=== PATIENT | female | born 1950 | race Two or more races ===

== ENCOUNTER 2022-11-01 07:52 | Outpatient (CLI) | payer OTHER | END 2022-11-01 07:59 | disposition home or self-care (01) | LOC: MRI 07:52 | PROVIDERS: ATTEND Internal Medicine Gastroenterology | DX: R10.11 Right upper quadrant pain (principal); K29.70 Gastritis, unspecified, without bleeding; K80.20 Calculus of gallbladder without cholecystitis without obstruction | CPT/HCPCS: 74181 ==

== ENCOUNTER 2022-11-30 05:10 | Day surgery (SDC) | payer OTHER ==
[~2022-11-30] VITALS: Ht 165.1 cm; Wt 72.6 kg
[~2022-11-30 05:10] MED LIST: ATACAND32 MG PO; LIPITOR40 M1 PO; NORVASC2.5 M1 PO; PROTONIX40 M1 PO; RESTORIL15 M1 PO; TENORMIN50 M1 PO
== END 2022-11-30 12:15 | disposition home or self-care (01) ==
LOC: CIR.AMB 05:10
PROVIDERS: ATTEND Specialist
DX: K81.1 Chronic cholecystitis (principal); I10 Essential (primary) hypertension; Z20.822 Contact with and (suspected) exposure to COVID-19

== ENCOUNTER 2024-05-22 08:29 | Outpatient (CLI) | payer OTHER | END 2024-05-22 08:45 | disposition home or self-care (01) | LOC: MAMO-SONO 08:29 | PROVIDERS: ATTEND General Practice | DX: E04.1 Nontoxic single thyroid nodule (principal); Z12.31 Encounter for screening mammogram for malignant neoplasm of breast ==